=== PATIENT | female | born 1975 | race Caucasian/White ===

== ENCOUNTER → 2019-06-25 10:05 | Outpatient (CLI) | payer OTHER, MEDICAID, SELFPAY ==
--- NOTE | 2019-06-25 10:13 | RAD_ITS ---
HISTORY: inflammatory polyarthropathy ADDITIONAL HISTORY: None provided. TECHNIQUE: AP and lateral views of the right hip with AP pelvis Number of images including paperwork: 3 COMPARISON: None FINDINGS: BONES: No acute fracture. No erosive changes. JOINTS: No subluxation. SOFT TISSUES: No distinct foreign body. RAD/HIP, UNI W/ Pelvis 2-3 Views IMPRESSION: No acute osseous abnormality. at 2255 Reported and signed by: Yashira Lacy MD Electronically Signed: Yashira Lacy MD at 22:54 EST Tel , Service support ,
[2019-06-25 12:37] LABS: Erythrocyte Sedimentation Rate 18 mm/hr (0-20)
[2019-06-25 12:38] LABS: Absolute Lymphocyte Count 2.68 X10^3/uL (0.83-4.51); Absolute Neutrophil Count 8.3 X10^3/uL (2.0-7.7); Basophil# 0.03 X10^3/uL; Basophil% 0.3 % (0-1); Eosinophil# 0.13 X10^3/uL; Eosinophils% 1.1 % (0-5); Hematocrit 42.4 % (37-47); Hemoglobin 14.3 g/dL (12.0-15.0); Lymphocyte # 2.68 X10^3/ul (4.0); Lymphocyte % 23.3 % (19-41); Mean Corp Hgb Conc 33.7 g/dL (32-36); Mean Corpuscular Hgb 32.5 pg (27.0-32.0); Mean Corpuscular Volume 96.4 fL (81-99); Mean Platelet Vol. 9.3 fl (6.2-12.0); Monocyte# 0.32 X10^3/uL; Monocyte% 2.8 % (0-10); NRBC Flagged by Analyzer 0 % (0-5); Neutrophil # 8.32 X10^3/uL (2.7-7.7); Neutrophil % 72.2 % (47-70); Platelet Count 333 K/mm3 (150-450); RBC Distribution Width CV 11.9 % (11.6-14.6); RBC Distribution Width SD 42.4 fl (35.1-43.9); White Blood Count 11.5 K/mm3 (4.4-11.0)
[2019-06-25 13:01] LABS: ALB/GLOB Ratio 0.9 RATIO (0.9-2.4); AST(SGOT) 14 U/L (15-37); Alanine Aminotransfer ALT/SGPT 23 U/L (13-56); Albumin, Serum 3.5 g/dL (3.2-5.0); Alkaline Phosphatase 87 U/L (45-117); Anion Gap 5 (5-15); BUN 7 mg/dL (7-18); BUN/Creat Ratio 9.2 RATIO (10-20); Chloride 110 mmol/L (98-107); Creatinine, Serum 0.76 mg/dL (0.55-1.02); EST Glomerular Filtration Rate 88 mL/min (>60); Est Glom Filt Rate - Afr Amer 106 mL/min (>60); Glucose 98 mg/dL (74-106); Potassium 3.9 mmol/L (3.5-5.1); Protein, Total 7.5 g/dL (6.4-8.2); Rheumatoid Factor < 10.0 IU/mL (<15); Sodium Level 139 mmol/L (136-145)
[2019-06-25 13:44] LABS: Hepatitis B Surface Antibody Non-Reactive; Hepatitis B Surface Antigen Non-Reactive (Nonreactive); Hepatitis C Antibody Non-Reactive (Nonreactive)
[2019-06-26 14:00] LABS: ANTINUCLEAR ANTIBODIES DIRECT Negative (Negative)
[2019-06-27 15:45] LABS: CCP IgG Antibodies 9 units (0-19); Hepatitis B Core AB IgM Negative (Negative)
== END ==
PROVIDERS: Referring Provider Internal Medicine Rheumatology; Visit Provider Internal Medicine Rheumatology
DX: M06.4 Inflammatory polyarthropathy (principal); M79.7 Fibromyalgia; I47.2 Ventricular tachycardia; I42.8 Other cardiomyopathies; E78.5 Hyperlipidemia, unspecified; K21.9 Gastro-esophageal reflux disease without esophagitis
CPT/HCPCS: 36415; 73502; 80053; 85025; 85652; 86038; 86140; 86200; 86431; 86705; 86706; 86803; 87340

== ENCOUNTER → 2019-10-23 08:34 | Outpatient (CLI) | payer OTHER, MEDICAID, SELFPAY ==
[2019-10-23 10:06] LABS: Absolute Lymphocyte Count 2.46 X10^3/uL (0.83-4.51); Absolute Neutrophil Count 10.3 X10^3/uL (2.0-7.7); Basophil# 0.06 X10^3/uL; Basophil% 0.4 % (0-1); Eosinophil# 0.34 X10^3/uL; Eosinophils% 2.5 % (0-5); Hematocrit 44.4 % (37-47); Hemoglobin 14.6 g/dL (12.0-15.0); Lymphocyte # 2.46 X10^3/ul (4.0); Mean Corp Hgb Conc 32.9 g/dL (32-36); Mean Corpuscular Hgb 32.6 pg (27.0-32.0); Mean Corpuscular Volume 99.1 fL (81-99); Mean Platelet Vol. 9.5 fl (6.2-12.0); Monocyte# 0.46 X10^3/uL; Monocyte% 3.4 % (0-10); NRBC Flagged by Analyzer 0 % (0-5); Neutrophil # 10.27 X10^3/uL (2.7-7.7); Neutrophil % 75.3 % (47-70); Platelet Count 309 K/mm3 (150-450); RBC Distribution Width CV 11.9 % (11.6-14.6); RBC Distribution Width SD 43.5 fl (35.1-43.9); Red Blood Count 4.48 M/mm3 (4.2-5.4); White Blood Count 13.7 K/mm3 (4.4-11.0)
[2019-10-23 10:39] LABS: ALB/GLOB Ratio 0.9 RATIO (0.9-2.4); AST(SGOT) 17 U/L (15-37); Alanine Aminotransfer ALT/SGPT 23 U/L (13-56); Albumin, Serum 3.5 g/dL (3.2-5.0); Alkaline Phosphatase 97 U/L (45-117); Anion Gap 7 (5-15); BUN 8 mg/dL (7-18); BUN/Creat Ratio 10.1 RATIO (10-20); Calcium,Total 8.7 mg/dL (8.5-10.1); Chloride 106 mmol/L (98-107); EST Glomerular Filtration Rate 83 mL/min (>60); Est Glom Filt Rate - Afr Amer 100 mL/min (>60); Globulin 3.9 g/dL (2.2-4.2); Glucose 104 mg/dL (74-106); Protein, Total 7.4 g/dL (6.4-8.2); Sodium Level 138 mmol/L (136-145)
[2019-10-26 03:07] LABS: QNTFERON TB Mitogen Value > 10.00 IU/mL (.); QNTFERON TB Nil Value 0.01 IU/mL (.); QNTFERON TB1+ Ag Value 0.02 IU/mL (.); QNTFERON TB2+ Ag Value 0.01 IU/mL (.)
[2019-10-28 05:11] LABS: QNTIFERON TB Positive Criteria Negative (Negative)
== END ==
PROVIDERS: Referring Provider Internal Medicine Rheumatology; Visit Provider Internal Medicine Rheumatology
DX: M06.4 Inflammatory polyarthropathy (principal); M79.7 Fibromyalgia; K21.9 Gastro-esophageal reflux disease without esophagitis; I47.2 Ventricular tachycardia; I42.8 Other cardiomyopathies; E78.5 Hyperlipidemia, unspecified
CPT/HCPCS: 36415; 80053; 85025; 86480

== ENCOUNTER → 2019-11-06 08:13 | Outpatient (CLI) | payer OTHER, MEDICAID, SELFPAY ==
--- NOTE | 2019-11-06 08:18 | RAD_ITS ---
STUDY: X-RAY CHEST REASON FOR EXAM: Female, 44 years old. hx RA, about to change meds TECHNIQUE: Frontal and lateral views of the chest. COMPARISON: None. FINDINGS: The lungs are clear and expanded. There is no demonstrated pleural abnormality. Normal size heart. Normal mediastinum and bishnu. Normal visualized pulmonary arteries. Normal visualized aortic arch and descending thoracic aorta. Normal visualized thoracic spine. Normal visualized ribs, clavicles, and shoulders. There is no demonstrated abnormality of the visualized soft tissue structures of the upper abdomen. RAD/Chest PA and Lateral IMPRESSION: Normal x-ray examination of the chest. Electronically Signed: Nabil Mabry MD at 16:47 EDT Tel , Service support ,
== END ==
PROVIDERS: Referring Provider Internal Medicine Rheumatology; Visit Provider Internal Medicine Rheumatology
DX: M06.09 Rheumatoid arthritis without rheumatoid factor, multiple sites (principal); M79.7 Fibromyalgia; I47.2 Ventricular tachycardia; I42.8 Other cardiomyopathies; E78.5 Hyperlipidemia, unspecified; K21.9 Gastro-esophageal reflux disease without esophagitis; Z79.899 Other long term (current) drug therapy
CPT/HCPCS: 71046

== ENCOUNTER → 2020-02-26 16:31 | Outpatient (CLI) | payer OTHER, SELFPAY ==
[2020-02-26 18:41] LABS: Absolute Lymphocyte Count 4.35 X10^3/uL (0.83-4.51); Absolute Neutrophil Count 5.5 X10^3/uL (2.0-7.7); Basophil# 0.05 X10^3/uL; Basophil% 0.5 % (0-1); Eosinophil# 0.24 X10^3/uL; Eosinophils% 2.2 % (0-5); Hemoglobin 14.2 g/dL (12.0-15.0); Lymphocyte # 4.35 X10^3/ul (4.0); Lymphocyte % 40.1 % (19-41); Mean Corpuscular Hgb 32.5 pg (27.0-32.0); Mean Corpuscular Volume 98.4 fL (81-99); Mean Platelet Vol. 9.6 fl (6.2-12.0); Monocyte# 0.64 X10^3/uL; Monocyte% 5.9 % (0-10); NRBC Flagged by Analyzer 0 % (0-5); Neutrophil # 5.53 X10^3/uL (2.7-7.7); Platelet Count 339 K/mm3 (150-450); RBC Distribution Width CV 11.9 % (11.6-14.6); RBC Distribution Width SD 43.4 fl (35.1-43.9); Red Blood Count 4.37 M/mm3 (4.2-5.4); White Blood Count 10.8 K/mm3 (4.4-11.0)
[2020-02-26 18:49] LABS: ALB/GLOB Ratio 0.9 RATIO (0.9-2.4); AST(SGOT) 16 U/L (15-37); Alanine Aminotransfer ALT/SGPT 28 U/L (13-56); Albumin, Serum 3.5 g/dL (3.2-5.0); Alkaline Phosphatase 92 U/L (45-117); Anion Gap 6 (5-15); BUN 9 mg/dL (7-18); BUN/Creat Ratio 10.4 RATIO (10-20); Chloride 107 mmol/L (98-107); Creatinine, Serum 0.87 mg/dL (0.55-1.02); EST Glomerular Filtration Rate 75 mL/min (>60); Est Glom Filt Rate - Afr Amer 90 mL/min (>60); Globulin 3.7 g/dL (2.2-4.2); Glucose 104 mg/dL (74-106); Protein, Total 7.2 g/dL (6.4-8.2); Sodium Level 140 mmol/L (136-145)
== END ==
PROVIDERS: Referring Provider Internal Medicine Rheumatology; Visit Provider Internal Medicine Rheumatology
DX: M06.09 Rheumatoid arthritis without rheumatoid factor, multiple sites (principal); M79.7 Fibromyalgia; I47.2 Ventricular tachycardia; I42.8 Other cardiomyopathies; E78.5 Hyperlipidemia, unspecified; K21.9 Gastro-esophageal reflux disease without esophagitis; Z79.899 Other long term (current) drug therapy
CPT/HCPCS: 36415; 80053; 85025

== ENCOUNTER → 2020-06-05 14:26 | Outpatient (CLI) | payer OTHER, SELFPAY ==
[2020-06-05 17:38] LABS: Absolute Lymphocyte Count 3.96 X10^3/uL (0.83-4.51); Absolute Neutrophil Count 6.6 X10^3/uL (2.0-7.7); Basophil# 0.01 X10^3/uL; Basophil% 0.1 % (0-1); Eosinophil# 0.23 X10^3/uL; Hematocrit 44.8 % (37-47); Hemoglobin 14.7 g/dL (12.0-15.0); Lymphocyte # 3.96 X10^3/ul (4.0); Lymphocyte % 34.6 % (19-41); Mean Corp Hgb Conc 32.8 g/dL (32-36); Mean Corpuscular Hgb 32.9 pg (27.0-32.0); Mean Corpuscular Volume 100.2 fL (81-99); Mean Platelet Vol. 9.5 fl (6.2-12.0); Monocyte# 0.62 X10^3/uL; Monocyte% 5.4 % (0-10); NRBC Flagged by Analyzer 0 % (0-5); Neutrophil # 6.59 X10^3/uL (2.7-7.7); Neutrophil % 57.6 % (47-70); Platelet Count 353 K/mm3 (150-450); RBC Distribution Width CV 12.2 % (11.6-14.6); RBC Distribution Width SD 45.7 fl (35.1-43.9); Red Blood Count 4.47 M/mm3 (4.2-5.4); White Blood Count 11.5 K/mm3 (4.4-11.0)
[2020-06-05 17:51] LABS: ALB/GLOB Ratio 0.9 RATIO (0.9-2.4); AST(SGOT) 18 U/L (15-37); Alanine Aminotransfer ALT/SGPT 26 U/L (13-56); Albumin, Serum 3.6 g/dL (3.2-5.0); Alkaline Phosphatase 91 U/L (45-117); Anion Gap 6 (5-15); BUN 7 mg/dL (7-18); BUN/Creat Ratio 9.2 RATIO (10-20); Calcium,Total 8.8 mg/dL (8.5-10.1); Chloride 107 mmol/L (98-107); Creatinine, Serum 0.76 mg/dL (0.55-1.02); EST Glomerular Filtration Rate 86 mL/min (>60); Est Glom Filt Rate - Afr Amer 104 mL/min (>60); Globulin 3.8 g/dL (2.2-4.2); Glucose 97 mg/dL (74-106); Potassium 3.6 mmol/L (3.5-5.1); Protein, Total 7.4 g/dL (6.4-8.2); Sodium Level 139 mmol/L (136-145)
== END ==
PROVIDERS: Referring Provider Internal Medicine Rheumatology; Visit Provider Internal Medicine Rheumatology
DX: M06.09 Rheumatoid arthritis without rheumatoid factor, multiple sites (principal); M79.7 Fibromyalgia; K21.9 Gastro-esophageal reflux disease without esophagitis; I47.2 Ventricular tachycardia; I42.8 Other cardiomyopathies; E78.5 Hyperlipidemia, unspecified; Z79.899 Other long term (current) drug therapy
CPT/HCPCS: 36415; 80053; 85025

== ENCOUNTER → 2020-07-09 10:06 | Outpatient (CLI) | payer OTHER, SELFPAY ==
[2020-07-09 10:10] LABS: Bacteria 0 SEEN /hpf (None Seen); Mucous, Urine 0 SEEN /hpf (<or=2+); White Blood Cells 0 SEEN /hpf (0-5)
[2020-07-09 12:07] LABS: Color, Urine Yellow (Yellow); Glucose, Dipstick Normal (Normal); Ketone-Dipstick Negative (Negative); Leukocyte Esterase-Dipstick Negative /ul (Negative); Nitrite-Dipstick Negative (Negative); Occult Blood-Urine 50 /ul (Negative); Protein-Dipstick Negative (Negative); Urine Bilirubin Dipstick Negative (Negative); Urine Clarity Sl. Cloudy (Clear); Urine Urobilinogen Normal (Normal)
[2020-07-09 12:09] LABS: Absolute Lymphocyte Count 2.37 X10^3/uL (0.83-4.51); Absolute Neutrophil Count 7.3 X10^3/uL (2.0-7.7); Basophil# 0.01 X10^3/uL; Basophil% 0.1 % (0-1); Eosinophil# 0.02 X10^3/uL; Eosinophils% 0.2 % (0-5); Hematocrit 42.7 % (37-47); Hemoglobin 14.1 g/dL (12.0-15.0); Lymphocyte # 2.37 X10^3/ul (4.0); Mean Corpuscular Hgb 32.9 pg (27.0-32.0); Mean Corpuscular Volume 99.5 fL (81-99); Mean Platelet Vol. 9.7 fl (6.2-12.0); Monocyte% 5.8 % (0-10); NRBC Flagged by Analyzer 0 % (0-5); Neutrophil % 70.7 % (47-70); Platelet Count 294 K/mm3 (150-450); RBC Distribution Width CV 12.2 % (11.6-14.6); RBC Distribution Width SD 44.7 fl (35.1-43.9); Red Blood Count 4.29 M/mm3 (4.2-5.4); White Blood Count 10.3 K/mm3 (4.4-11.0)
[2020-07-09 12:15] LABS: Red Blood Cells-Urine 0-5 SEEN /hpf (0-5); Squamous Epithelial Cells - UA 0-5 SEEN /hpf (5-10)
[2020-07-09 12:33] LABS: ALB/GLOB Ratio 0.9 RATIO (0.9-2.4); AST(SGOT) 18 U/L (15-37); Alanine Aminotransfer ALT/SGPT 25 U/L (13-56); Albumin, Serum 3.4 g/dL (3.2-5.0); Alkaline Phosphatase 91 U/L (45-117); Anion Gap 5 (5-15); BUN 6 mg/dL (7-18); BUN/Creat Ratio 8.3 RATIO (10-20); Calcium,Total 8.7 mg/dL (8.5-10.1); Chloride 108 mmol/L (98-107); Creatinine, Serum 0.73 mg/dL (0.55-1.02); EST Glomerular Filtration Rate 91 mL/min (>60); Est Glom Filt Rate - Afr Amer 111 mL/min (>60); Globulin 3.7 g/dL (2.2-4.2); Glucose 99 mg/dL (74-106); Protein, Total 7.1 g/dL (6.4-8.2); Sodium Level 139 mmol/L (136-145); T4 Free Direct 0.98 ng/dL (0.76-1.46); Thyroid Stim Hormone (TSH) 1.84 uIU/mL (0.358-3.74)
== END ==
PROVIDERS: PCP Family Medicine; Referring Provider Family Medicine; Visit Provider Family Medicine
DX: M06.9 Rheumatoid arthritis, unspecified (principal); E04.1 Nontoxic single thyroid nodule; F32.9 Major depressive disorder, single episode, unspecified; Z72.0 Tobacco use
CPT/HCPCS: 36415; 80053; 81001; 84439; 84443; 85025

== ENCOUNTER → 2020-07-15 14:03 | Outpatient (CLI) | payer OTHER, SELFPAY ==
--- NOTE | 2020-07-15 14:05 | US_ITS ---
STUDY: THYROID ULTRASOUND REASON FOR EXAM: Female, 44 years old. NODULE TECHNIQUE: Ultrasound evaluation of the thyroid was performed with real-time and static soler-scale imaging. COMPARISON: None. FINDINGS: RIGHT LOBE: The right lobe of the thyroid gland measures 5.1 x 1.6 x 1.2 cm. There is a homogeneous echotexture. There are no demonstrated solid, cystic or complex lesions. LEFT LOBE: The left lobe of the thyroid gland measures 4.5 x 1.7 x 1.5 cm. There is a homogeneous echotexture. There are no demonstrated solid, cystic or complex lesions. ISTHMUS: The isthmus measures 2 mm . The regional lymph nodes are normal. US/Thyroid IMPRESSION: Normal ultrasound examination of the thyroid. No nodule is seen. Electronically Signed: Сергей Soriano MD at 20:20 EST , Service support ,
== END ==
LOC: US 14:04
PROVIDERS: PCP Family Medicine; Referring Provider Family Medicine; Visit Provider Family Medicine
DX: E04.1 Nontoxic single thyroid nodule (principal)
CPT/HCPCS: 76536

== ENCOUNTER → 2020-07-31 10:33 | Outpatient (CLI) | payer OTHER, SELFPAY ==
--- NOTE | 2020-07-31 10:37 | RAD_ITS ---
STUDY: X-RAY CHEST REASON FOR EXAM: Female, 44 years old. FINGER CLUBBING TECHNIQUE: PA and lateral views of the chest. COMPARISON: Comparison is made with prior examination dated 11/06/2019. FINDINGS: The lungs are clear and expanded. There is no demonstrated pleural abnormality. Normal size heart. Normal mediastinum and bishnu. Normal visualized pulmonary arteries. Normal visualized aortic arch and descending thoracic aorta. Normal visualized thoracic spine. Normal visualized ribs, clavicles, and shoulders. There is no demonstrated abnormality of the visualized soft tissue structures of the upper abdomen. RAD/Chest PA and Lateral IMPRESSION: Normal x-ray examination of the chest. Electronically Signed: Jaziel Gibbs MD at 15:20 EDT , Service support ,
== END ==
LOC: MTRAD 10:34
PROVIDERS: PCP Family Medicine; Referring Provider Family Medicine; Visit Provider Family Medicine
DX: R68.3 Clubbing of fingers (principal)
CPT/HCPCS: 71046

== ENCOUNTER 2022-07-27 13:30 | Outpatient (RCR) | payer MEDICAID, SELFPAY ==
--- NOTE | 2022-06-27 15:17 | HP.PTEVAL ---
Patient's Visit Information CHANDLER MESSINA is a 46 year old F referred to Physical Therapy by BRITTANY Sneed with a diagnosis of R greater trochanteric bursitis. Date of Evaluation: 06/27/22 Physical Therapist: Meng Chirinos DPT - Visit Plan Frequency: 2x /Week Duration: 4-6 Weeks Plan: Start with glute medius, hip flexor, core strength in aquatic setting. Add in IT band and HS stretching. Add in hip ER/IR strengthening when not painful. - Subjective Pt. is here today for her initial evaluation with diagnosis of R hip pain, R hip bursitis. Pt. reports having increased pain for a few years. Pt. reports that she has been just dealing with it. She does report having an underlying arthritis which she was taking Enbril for, but reports she did not have RA. She reports only having osteoarthritis. I talked to her that this is typically used in rheumatisms, but she reports not having any that she knew of. Pt. also has B carpal tunnel, getting surgery at the end of july. Pt. reports pain at lateral R hip, near greater trochanter. Pt. denies radicular symptoms. She does have an AFO which she does not wear as she reports not being able to drive with it. Increases R hip pain: standing, walking, prolonged sitting, and lying on her R side. Reduces symptoms: massage gun helps. Pt. is hopeful to reduce symptoms in order to get back to all recreational and work activities without limitations. - Pain R lateral hip Pain Intensity (Out of 10): 5 - Objective POSTURE: Pt. has slight flexed posture, normal foot positioning, slight reduction in lumbar lordosis. Normal iliac crest heights, slight increase in wt. shift to L side. PALPATION: Pt. has tenderness at greater trochanter and along piriformis muscle belly. No hip flexor pain noted. NEURO: Pt. has normal sensation in BLEs. Reduction in R Achilles DTR, difficulty rising on B toes. ROM: R hip: ER 50deg (tight), IR 20deg NE, ext 10deg, flexion 120deg mild increase NW, abd 45deg NE, adduction 5 deg increase NW at greater trochanter. LUMBAR SPINE: flexion mod loss NE, ext mod loss NE, SB L mod/min loss increase NW, SB R min loss NE, rotation min loss bilat mild increase NW. MMT: LLE 5/5 throughout; except hip; flexion, abd and ext 4+/5. RLE: ankle PF 4/5, DF 4-/5; knee: ext 4+/5, flexion 4/5; hip flexion: 3/5, abd 3+/5, ext 4/5, ER 3/5, IR 3/5. Core strength- poor. GAIT: Pt. ambulates with increased R hip lateral translation during R stance phase. Pt. also heavily uses R hip flexors with swing phase, almost marching like. Decreased R DF noted as well during swing phase. - Special Tests R Hip Scour: Negative R Hip LILIAN - Intraarticular Pathology: Negative R Hip FADDIR - Labrum: Negative R Hip Trendelenberg - Glut Medius: Positive R Hip Kenneth - IT Band: Positive - Balance/Special Test Scores Lower Extremity Functional Score: 0 - Goals Goal 1:: LTG: Pt. to be I with HEP. Goal Time Frame: 4-6 Weeks Goal 2:: STG: pt. to have increased IT band and HS length symmetrical to L side. Goal Time Frame: 2-4 Weeks Goal 3:: LTG: Pt. to have increased LLE strength symmetrical to R side. Goal Time Frame: 4-6 Weeks Goal 4:: LTG: Pt. to be able to stand, walk, climb stairs without increase in R hip pain. Goal Time Frame: 4-6 Weeks Goal 5:: STG: Pt. to sleep without increase in symptoms. Goal Time Frame: 2-4 Weeks - Rehabilitation Potential Physical Therapy Diagnosis: Pt. has signs and symptoms consistent with R greater trochanteric bursitis. Pt. has an underlying R LE issues from a defect, she is unsure of the nature, but reports having a weak RLE due to this. She has marked weakness throughout her RLE, especially with glute medius, R hip flexor, R ankle DF, R PF. Due to this weakness it appears that she is over using her IT band to stabilize resulting in greater trochanteric bursitis. Pt. would benefit from PT to address the above limitations progressing back to all recreational and work activities with good toelrance. Rehabilitation Potential: Fair - Anticipated Interventions Patient/Client Instruction: Educate patient on: Condition, Plan of Care, Risk Factors, Benefits of Fitness Program For the Purpose of:: To facilitate caregiver knowledge, To improve self management, To prevent re-injury, To improve ability to perform tasks related to life management, To improve tolerance to ADL's Therapeutic Exercise to Include: Strength training, Power training, Endurance training, Body mechanics, Postural training, Flexibilty training, Gait and locomotor training, In an aquatic setting For the Purpose of:: To decrease pain, To increase ROM, To improve nutrient delivery to tissue, To increase oxygenation perfusion, To improve muscle performance and motor function, To improve ability to perform ADL's, To increase tolerance to activity/condition/position, To improve performance and independence with ADL's, To decrease level of supervision to perform tasks, To improve ability of physical actions for home/community/work/leisure, To improve health of tissue Thank you for the opportunity to evaluate your patient. For Medicare and Medicare HMO plans, please review the plan of care and approve it. It will need to be FAXED BACK to us at [phone] for Medicare purposes. For Medicare only, by signing this I certify the plan of care. Please let me know if there are questions or concerns regarding this plan of care. Physician Signature: Date:
--- NOTE | 2022-07-27 19:04 | HP.PTDCSUM ---
It has been my pleasure to treat CHANDLER MESSINA referred by BRITTANY Sneed, with the diagnosis of R greater trochanteric bursitis for a total of 8 visit(s). Discharge Date: 07/27/22 Please see the following information for a summary of their discharge status. Subjective: Pt. reports overall no change in her R hip pain. Pt. denies N/T. Pt. reports still having pain with sitting, standing, and with all movements. She reports she is going in to have her carpal tunnel surgery next week. R lateral hip Pain Intensity (Out of 10): 7 % Improvement: 0 Objective/Function: Pt. continues to walk with an antalgic pattern during R stance phase. Pt. does have a slight leg length discrepancy. Pt. reports having relief with a lift previously, but reports not being able to wear insert, and would need a built up shoe. MMT: RLE: ankle and knee 4/5 marked weakness noted (pt. reports she had been weak here since youth), hip: flexion 4/5 increase NW, abd 4/5 increase NW. LLE: 5/5 throughout. ROM: R hip: flexion 90deg, abd 10deg, IR 20deg, ER 40deg, adduction to neutral. I did not feel any tightness or end feel, but was empty due to pain. She did have some pain with a slump test in her R hip, but no radicular symptoms. She also C/O increased anterior rib pain during testing. Not sure the nature of this. + obers for tightness and pain. She did not test much stronger in comparison to her initial evaluation. She also did not tolerate stretching much. At this point I would recommend following up with physician to determine best course of action. Goal 1:: LTG: Pt. to be I with HEP. Goal Progress: Progressing Goal 2:: STG: pt. to have increased IT band and HS length symmetrical to L side. Goal Progress: Not Progressing Goal 3:: LTG: Pt. to have increased LLE strength symmetrical to R side. Goal Progress: Not Progressing Goal 4:: LTG: Pt. to be able to stand, walk, climb stairs without increase in R hip pain. Goal Progress: Not Progressing Goal 5:: STG: Pt. to sleep without increase in symptoms. Goal Progress: Not Progressing Plan: Pt. to be DC from PT at this point in time. Discharge Comments: Pt. was seen in aquatic setting to work on glute strengthening, TFL stretching and progressive strengthening. She did okay while in pool, but this did not correlate with reduction in symptoms otherwise. She continues to be very hesitant to more her R hip except into flexion. She has some weakness in her R leg, but reports this is due to a injury. This may be causing over stress to her IT band, but her testing was pretty inconsistent. Pt. to be DC to physician for further testing. If there are questions or concerns regarding this patient's physical therapy, please feel free to call me at [phone]. Thank you for the referral of this patient. Sincerely, Meng Chirinos, DPT Balance/Gait/Functional tests - Balance/Special Test Scores Lower Extremity Functional Score: 0
== END 2022-07-27 19:00 | disposition home or self-care (01) ==
LOC: PT 13:30
PROVIDERS: PCP Family Medicine
DX: M70.60 Trochanteric bursitis, unspecified hip (principal)
CPT/HCPCS: 97110; 97113; 97161; 97164

== ENCOUNTER 2022-08-02 12:43 | Day surgery (SDC) | payer MEDICAID, SELFPAY ==
[2022-08-02 13:22] VITALS: BP 129/69; PULSE 77; RESP 16; TEMP 36.3; O2SAT 96; BMI 35.7
[2022-08-02] MEDS: Lactated Ringers 1,000 ML 15 ML IV (13:26)
[2022-08-02 13:29] LABS: Internal QC Validated? YES +Cl - CLEAR BKGD; Pregnancy, Urine Negative Negative
--- NOTE | 2022-08-02 13:52 | HP.PCM_ITS ---
History and Physical Date of Admission: 08/02/22 [facility] [address] [place] [address] OFFICE VISIT Date of Service:? 06/20/22 MR#: [id number] Acct: [id number] Name:CHANDLER OGLESBY Rep #: [id number] : 1975 ? ? Provider: Dr. Edwardo Barrow, Age/Sex:? 46/F ? ? Location: [facility] [place].[facility] Status: Signed Intake Intake Visit Reasons:?BL hands Allergies nitroglycerin Allergy (Verified 06/09/22 13:07) Hives Medications bupropion HCl 150 mg 24 hr tablet, extended release ea PO 06/09/22 [History Confirmed 06/20/22] meloxicam 15 mg tablet 15 mg PO DAILY Pain #30 tabs 06/09/22 [Rx Confirmed 06/20/22] sertraline 100 mg tablet 100 mg PO 06/09/22 [History Confirmed 06/20/22] PFSH Surgical History?(Updated 06/20/22 @ 13:26 by Ekaterina Rosales) H/O foot surgery Hx of prior ablation treatment Family History?(Updated 06/09/22 @ 13:17 by Debbie Trejo) Other CVA (cerebral vascular accident) Cancer Social History?(Updated 06/20/22 @ 13:43 by Ekaterina Rosales) household members:? none Smoking Status:? Current every day smoker tobacco type: cigarettes alcohol intake:? current alcohol intake frequency: 3 or more drinks per day Alcohol type: beer HPI BL hands Details: Parts of this documentation were recorded by a scribe, this documentation accurately reflects the service provided and the decisions made by me, Dr. Edwardo Barrow, DO 06/20/22 5037. CHANDLER MESSINA is a 46 year old F here today for? F/U on BL EMGs. SHe states that she has pain/numbness and tingling of the BL hands into the 1st through 4th digits. She states that the left hand is worse than the right. She is right handed. She has been having symptoms for about 1-2 years. She has tried night splinting for about 1 year or longer on the BL wrists which hasn't been helpful. Denies any previous injections/surgery/or trama to the hands. She was seeing Dr. Sanders for inflammatory arthritis but doesnt recall the name of the diagnosis. She has been off Enbrel? for about 1 year since she hasn't been able to afford this. Ortho Exam General General: Yes no acute distress Neurologic: Yes alert and Yes oriented x3 Psychologic: Yes reasonable and appropriate Right Wrist/Hand Right Wrist: Yes Durken's Test, Tinel's and Phalen's; No Thenar Atrophy or Hypothenar Atrophy WRIST: She has clubbing of all of her digits small non mobile ganglion at volar wrist flexion crease Left Wrist/Hand Skin/Wound: No erythema Left Wrist: Yes Durken's Test, Yes Tinel's and Yes Phalen's; No Thenar Atrophy and No Hypothenar Atrophy WRIST: clubbing of the finger nails pain in DIP joint of middle finger no triggering. Head: Normocephalic Atraumatic Chest: symmetrical rise, non-labored breathing, no audible wheeze Abdomen: no guarding, non-rigid Supplemental Info 06/13/2022 EMG bilateral upper extremities: #1Right median mononeuropathy consistent with moderate carpal tunnel #2 left median mononeuropathy consistent with mild to moderate carpal tunnel? 06/20/22 1:21 pm ALAN - Edwardo Barrow Coding Level of Care Code Off vis,est,level 3 Diagnoses Bilateral carpal tunnel syndrome? G56.03 Inflammatory arthritis? M19.90 Assessment and Plan Assessment and Plan (1) Bilateral carpal tunnel syndrome: ?Status:?Acute (2) Inflammatory arthritis: ?Status:?Acute Plan Personally reviewed patients EMG of the BL upper extremities. Educated that she does have BL carpal syndrome. Treatment options are do nothing or night bracing or injections or carpal tunnel release. Reviewed the pre-operative plans with the patient. Risks and benefits of the procedure were fully explained, including but not limited to incisional hypersensitivity, pillar pain ,infection, neurovascular injury, continued pain, arthritis, stiffness, need for further surgery, re-injury, DVT, PE, general risks of anesthesia, and loss of limb or life. The patient understands all the risks. She would have 0.5lb lifting restriction for 2 weeks post op then 5lb restriction until 4 weeks post op. She will proceed with left carpal tunnel release on 08/02/22. Patient does admit to drinking about 18 twisted teas a week although she denies recreational drug use and denies any alcohol withdrawal symptoms ever. Follow up 2 weeks post op or sooner if pain, swelling, numbness or associated symptoms, or concerns develop.? All questions answered. Patient in agreement of plan. 06/20/22 1401 <Electronically signed by Edwardo Barrow DO> Date I have examined the patient and the H&P has been reviewed. There are no clinical changes since date of exam. Edwardo Barrow DO Cosigner Signature: Date (if applicable)
[2022-08-02] MEDS: Cefazolin 2 GM in 0.9% Normal Saline 100 ML IV (14:20)
[2022-08-02] MEDS: Lidocaine 1% /Epi 1:100 (20ml) 20 ML Vial (14:33)
--- NOTE | 2022-08-02 14:50 | OP.PCM_ITS ---
Operative Report Date of Procedure: 08/02/22 Preoperative diagnosis; left carpal tunnel syndrome Postoperative diagnosis; same Procedure: Left open carpal tunnel release Anesthesia: Local with MAC Tourniquet time; 18 minutes 250 mm Hg Complications: None Indication for procedure; This is a 46-year-old female with long-standing sym ptoms consistent with carpal tunnel syndrome the patient did have electrodiagnostic evidence of this and has failed conservative treatment. Risks benefits and alternatives were reviewed including risks of bleeding infection nerve artery tissue damage need for further surgery and continued pain and symptoms, hypersensitivity to scar and Pillar pain. Procedure; The patient was met in the preoperative holding area the operative extremity was identified by both patient and physician and was marked the patient was met by anesthesia and brought back to the operating room and transferred to the operating table in the supine position. Anesthesia was started. A well-padded tourniquet was placed on the operative upper extremity. The patient was prepped and draped in the usual sterile fashion. A timeout was called to ensure the proper patient procedure and extremity were being contemplated. 0.5 percent lidocaine with epinephrine was injected into the incisional area. An Esmarch was used to exsanguinate the extremity. The tourniquet was inflated to 250 mmHg. A midline incision was made with a 15 blade scalpel between the thenar and hypothenar eminence. This was carried down through the skin and subcutaneous tissue. Jeremiah retractors were then used, a deep blade scalpel was used to make a deep incision in the palmar aponeurosis. The jeremiah retractors were then placed deep to this and the transverse carpal ligament was identified a perforation was made with a scalpel and a Littler scissors were used to complete the release of the transverse carpal ligament distally under direct visualization with the tips facing ulnarly until the perivascular fat was reached. Then turning our attention proximally using a tension slide technique the proximal extent of the transverse carpal ligament was released . There was noted to be flattening of median nerve and hypertrophy of the transverse carpal ligament without other findings]. The wound was thoroughly irrigated and was closed with 4-0 nylon vertical mattress stitches. Dressing was applied in the form of xeroform 4 x 4, web roll and an alexx wrap. Tourniquet was let down there is no intraoperative complications patient shayla rated the procedure well and was transferred to the PACU. All counts were correct.
--- NOTE | 2022-08-02 14:53 | DCINST_ITS ---
Discharge Instructions Diet Discharge Diet: No restrictions Dressing / Incision Call your doctor if you observe: Shortness of breath and Chest pain Additional Dressing/Incision Instructions:: Ice and elevate operative extremity next 72 hours. Keep dressing on clean and dry for 48 hours then may remove and allow warm soapy water to rinse over incision but do not submerge until sutures are out. Then apply bandaid over incision and change daily. encourage finger range of motion. Not lift more than 1/2 pound. Minimize narcotic use only as needed and directed, may use OTC NSAID and Tylenol to supplement/substitute for pain control. Follow Up Care Please Follow Up With: Edwardo Barrow DO When: 2 weeks Test Results: Test results from this visit will be discussed in further detail at your follow- up appointment, if applicable. Discharge Plan Admission Primary Reason for Your Visit: Left carpal tunnel release Attending Provider: Edwardo Barrow Primary Care Provider: Kt Rodriguez Discharge Orders/Prescriptions Prescriptions: New oxycodone 5 mg tablet 5 - 10 mg PO Q4H PRN (Reason: pain) 4 Days Qty: 10 0RF Continued bupropion HCl 150 mg tablet extended release 24 hr 300 mg PO DAILY Label Comments: TAKE 1 TABLET BY MOUTH EVERY DAY sertraline 100 mg tablet 150 mg PO DAILY Label Comments: TAKE 1 AND 1/2 TABLETS BY MOUTH DAILY calcium carbonate [Tums] 300 mg (750 mg) Tablet,Chewable 300 mg PO BID Referrals / Follow Up: Kt Rodriguez MD [Primary Care Provider] - Disposition Disposition (needs filled in before D/C Order can be placed): Home, Self Care
[2022-08-02 15:00] VITALS: BP 102/69; BP 129/69; PULSE 82; RESP 16; TEMP 37.2; O2SAT 92
[2022-08-02 15:05] VITALS: BP 129/69; BP 98/63; PULSE 79; RESP 16; O2SAT 94
[2022-08-02 15:10] VITALS: BP 129/69; BP 88/57; PULSE 79; RESP 16; O2SAT 93
[2022-08-02 15:19] VITALS: BP 103/74; BP 129/69; PULSE 77; RESP 16; TEMP 36.4; O2SAT 93
[2022-08-02 16:14] VITALS: BP 129/69
== END 2022-08-02 16:24 | disposition home or self-care (01) ==
LOC: SDC 12:45 → AC 12:47
PROVIDERS: Anesthesiology; PCP Family Medicine; Referring Provider Orthopaedic Surgery; Visit Provider Orthopaedic Surgery
PROC: (CPT 64721; principal; 2022-08-02 14:10)
DX: G56.03 Carpal tunnel syndrome, bilateral upper limbs (principal); M06.4 Inflammatory polyarthropathy; F17.210 Nicotine dependence, cigarettes, uncomplicated; Z79.1 Long term (current) use of non-steroidal anti-inflammatories (NSAID); Z79.899 Other long term (current) drug therapy
CPT/HCPCS: 64721; 01810; 81025; J7120

== ENCOUNTER → 2022-09-09 | Outpatient (CLI) | payer MEDICAID, SELFPAY ==
[2022-09-09 17:57] LABS: Rheumatoid Factor < 10.0 IU/mL (<15)
[2022-09-09 17:59] LABS: Erythrocyte Sedimentation Rate 32 mm/hr (0-30)
[2022-09-12 11:08] LABS: CCP IgG Antibodies 0 units (0-19)
== END | disposition home or self-care (01) ==
LOC: MFPLAB 14:47
PROVIDERS: PCP Family Medicine; Visit Provider Family Medicine
DX: M06.9 Rheumatoid arthritis, unspecified (principal)
CPT/HCPCS: 36415; 85652; 86140; 86200; 86431

== ENCOUNTER 2022-11-15 06:49 | Day surgery (SDC) | payer MEDICAID, SELFPAY ==
--- NOTE | 2022-11-15 07:05 | HP.PCM_ITS ---
History and Physical Date of Admission: 11/15/22 Provider Notes CHANDLER MESSINA?(VIP)??47??F??1975 ? Allergy/Adv: Environmental Allergies: Uncoded, nitroglycerin (More??) Close Orthopedics Visit (Signed) Edwardo Barrow - 11/09/22 11:10 Orthopedics Visit (Signed) Ana Carrion - 08/15/22 14:55 BMS Internal Correspondence (Scanned) 08/11/22 10:35 Progress Note: Post-Anes Eval (Scanned) 08/03/22 13:39 Anesthesia Evaluation Form (Scanned) 08/03/22 13:39 Other Facility Information (Scanned) 08/03/22 13:39 Volcanology Teacher Strip (Scanned) 08/03/22 13:39 Surgery Discharge Packet (Viewable) 08/02/22 15:51 Anesthesia Intraop (Scanned) 08/02/22 15:03 Discharge Instructions (Signed) Edwardo Barrow - 08/02/22 14:55 Operative Report (Signed) Edwardo Barrow - 08/02/22 14:53 History & Physical (Signed) Edwardo Barrow - 08/02/22 13:52 Physical Therapy Discharge Summary (Signed) Meng Chirinos - 07/27/22 19:04 External Correspondence (Scanned) 07/15/22 15:36 External Correspondence (Scanned) 06/28/22 11:29 Physical Therapy Evaluation (Signed) Meng Chirinos - 06/27/22 15:17 Orthopedics Visit (Signed) Edwardo Barrow - 06/20/22 14:01 Orthopedics Visit (Signed) Ana Carrion - 06/10/22 16:45 BMS HIPAA (Scanned) 06/09/22 12:58 Add?Addendum [facility] [address] [place] [address] [address] [place] [address] OFFICE VISIT Date of Service: 11/09/22 MR#: [id number] Acct: [id number] Name: CHANDLER MESSINA Amara Rep #: [id number] : 1975 Provider: Dr. Edwardo Barrow DO Age/Sex: 47/F Location: [facility] [place] Status: Signed Intake Vital Signs 08/02/2312:22 Height 5 ft 1 in Intake Visit Reasons: RIGHT HAND Is patient in pain?: Yes (Right hand) Pain scale (1-10): 8 Allergies Environmental Allergies: Uncoded Allergy (Verified 11/09/22 10:38) Rashnitroglycerin Allergy (Verified 11/09/22 10:38) Hives Medications bupropion HCl 150 mg 24 hr tablet, extended release 300 mg PO DAILY 06/09/22 [History Confirmed 11/09/22] sertraline 100 mg tablet 150 mg PO DAILY 06/09/22 [History Confirmed 11/09/22] calcium carbonate 300 mg (750 mg) chewable tablet (Tums) 300 mg PO BID 08/01/22 [History Confirmed 11/09/22] PFSH Medical History Alcohol use Anemia Anxiety Arthritis Back pain Chronic cough Depression Easy bruising Gastric reflux History of atrial fibrillation History of diverticulitis History of echocardiogram History of pain when walking History of stress test Migraine headache Restless legs Shortness of breath on exertion Smoker Syncope Wears dentures Wears glasses Surgical History H/O foot surgery Hx of prior ablation treatment Hx of release of tendon Family History Other CVA (cerebral vascular accident) Cancer Social History household members: none Smoking Status: Current every day smoker tobacco type: cigarettes alcohol intake: current alcohol intake frequency: 3 or more drinks per day Alcohol type: beer HPI RIGHT HAND Details: Parts of this documentation were recorded by a scribe, this documentation accurately reflects the service provided and the decisions made by me, Dr. Edwardo Barrow, DO 11/09/22 0740. CHANDLER MESSINA is a 47 year old F here today to discuss scheduling carpal tunnel release surgery for her right hand. She reports pain, numbness and tingling, which has gotten worse over the last few months. Her left hand is healed from carpel tunnel release and now she wants to proceed with the right hand. Ortho Exam General General: Yes no acute distress Neurologic: Yes alert and Yes oriented x3 Psychologic: Yes reasonable and appropriate Right Wrist/Hand Skin/Wound: Yes CDI, No Swelling and No Ecchymosis Right Wrist: Yes Phalen's; No Tinel's Left Wrist/Hand Skin/Wound: No Swelling and No Ecchymosis Right Hip Skin: No Ecchymosis, No soft tissue swelling and No Erythema HIP: No groin pain with hip range of motion tender to palpation over the greater trochanteric bursa Head: Normocephalic Atraumatic Chest: symmetrical rise, non-labored breathing, no audible wheeze Abdomen: no guarding, non-rigid Supplemental Info 08/02/2022: Left open carpal tunnel release Dr. Barrow 06/13/2022 EMG bilateral upper extremities: #1Right median mononeuropathy consistent with moderate carpal tunnel #2 left median mononeuropathy consistent with mild to moderate carpal tunnel? Coding Level of Care Code Off vis,est,level 3 Diagnoses Bilateral carpal tunnel syndrome G56.03 Greater trochanteric bursitis of right hip M70.61 Assessment and Plan Assessment and Plan (1) Bilateral carpal tunnel syndrome: Status: Acute (2) Greater trochanteric bursitis of right hip: Plan Spoke with the patient about her options for her right carpal tunnel syndrome- surgery, injections. Patient wanted to proceed with surgery at this time. Patient will have restrictions for 3 weeks after her surgery. Spoke with the patient about her right greater troch bursa. She may have an injection, oral anti-inflammatories, physical therapy. She did not want to proceed with an injection. She is unable to take oral anti-inflammatories at this time as she is not able to take NSAIDs 7 days prior to her surgery. She should work on stretching her IT band. Patient has an appointment with a wireless field technician tomorrow. She should not start any medications at this time as she is scheduled for surgery on 11/15/22. Follow up for 2 week post op or sooner if pain, swelling, numbness or associated symptoms, or concerns develop. All questions answered. Patient in agreement of plan. 11/09/22 1110 <Electronically signed by Edwardo Barrow DO> Date Edwardo Clark Signature: Date (if applicable) I have examined the patient and the H&P has been reviewed. There are no clinical changes since date of exam.
[2022-11-15 07:14] VITALS: BP 117/77; PULSE 81; RESP 16; TEMP 36.1; O2SAT 97; BMI 35.8
[2022-11-15 07:14] LABS: Internal QC Validated? YES +Cl - CLEAR BKGD; Pregnancy, Urine Negative Negative
[2022-11-15] MEDS: Lactated Ringers 1,000 ML 15 ML IV (07:24)
[2022-11-15] MEDS: Cefazolin 2 GM in 0.9% Normal Saline 100 ML IV (08:19)
[2022-11-15] MEDS: Lidocaine 1% /Epi 1:100 (20ml) 20 ML Vial (08:36)
--- NOTE | 2022-11-15 08:54 | OP.PCM_ITS ---
Operative Report Date of Procedure: 11/15/22 Preoperative diagnosis; right carpal tunnel syndrome Postoperative diagnosis; same Procedure: Right open carpal tunnel release Anesthesia: Local with MAC Tourniquet time; 10 minutes 250 mm Hg Complications: None Indication for procedure; This is a 47-year-old female with long-standing s ymptoms consistent with carpal tunnel syndrome the patient did have electrodiagnostic evidence of this and has failed conservative treatment. Risks benefits and alternatives were reviewed including risks of bleeding infection nerve artery tissue damage need for further surgery and continued pain and symptoms, hypersensitivity to scar and Pillar pain. Procedure; The patient was met in the preoperative holding area the operative extremity was identified by both patient and physician and was marked the patient was met by anesthesia and brought back to the operating room and transferred to the operating table in the supine position. Anesthesia was started. A well-padded tourniquet was placed on the operative upper extremity. The patient was prepped and draped in the usual sterile fashion. A timeout was called to ensure the proper patient procedure and extremity were being contemplated. 0.5 percent lidocaine with epinephrine was injected into the incisional area. An Esmarch was used to exsanguinate the extremity. The tourniquet was inflated to 250 mmHg. A midline incision was made with a 15 blade scalpel between the thenar and hypothenar eminence. This was carried down through the skin and subcutaneous tissue. Jeremiah retractors were then used, a deep blade scalpel was used to make a deep incision in the palmar aponeurosis. The jeremiah retractors were then placed deep to this and the transverse carpal ligament was identified a perforation was made with a scalpel and a Littler scissors were used to complete the release of the transverse carpal ligament distally under direct visualization with the tips facing ulnarly until the perivascular fat was reached. Then turning our attention proximally using a tension slide technique the proximal extent of the transverse carpal ligament was released . There was noted to be hourglass configuration to the median nerve and hypertrophy of the transverse carpal ligament without other findings. The wound was thoroughly irrigated and was closed with 4-0 nylon vertical mattress stitches. Dressing was applied in the form of xeroform 4 x 4, web roll and an alexx wrap. Tourniquet was let down there is no intraoperative complications patient tolerated the procedure well and was transferred to the PACU. All counts were correct.
[2022-11-15 08:55] VITALS: BP 117/77; BP 88/55; PULSE 82; RESP 16; TEMP 36.8; O2SAT 94
--- NOTE | 2022-11-15 08:55 | DCINST_ITS ---
Discharge Instructions Dressing / Incision Call your doctor if you observe: Shortness of breath and Chest pain Follow Up Care Please Follow Up With: Edwardo Barrow DO When: 2 weeks Test Results: Test results from this visit will be discussed in further detail at your follow- up appointment, if applicable. Discharge Plan Admission Primary Reason for Your Visit: Right carpal tunnel release Attending Provider: Edwardo Barrow Primary Care Provider: Care Physician,Ramona Primary Discharge Orders/Prescriptions Prescriptions: New oxycodone 5 mg tablet 5 mg PO Q4H PRN (Reason: pain) 3 Days Qty: 14 0RF Referrals / Follow Up: Kt Rodriguez MD [Med Staff - Quarter Supervisor] - Disposition Disposition (needs filled in before D/C Order can be placed): Home, Self Care
[2022-11-15 09:00] VITALS: BP 117/77; BP 87/56; PULSE 80; RESP 16; O2SAT 96
[2022-11-15 09:05] VITALS: BP 117/77; BP 89/55; PULSE 77; RESP 16; O2SAT 92
[2022-11-15 09:09] VITALS: BP 117/77; BP 92/63; PULSE 75; RESP 16; TEMP 36.2; O2SAT 93
[2022-11-15 10:00] VITALS: BP 117/77
== END 2022-11-15 10:04 | disposition home or self-care (01) ==
LOC: SDC 06:49 → AC 06:51
PROVIDERS: Anesthesiology; Referring Provider Orthopaedic Surgery; Visit Provider Orthopaedic Surgery
PROC: (CPT 64721; principal; 2022-11-15 08:20)
DX: G56.03 Carpal tunnel syndrome, bilateral upper limbs (principal); F17.210 Nicotine dependence, cigarettes, uncomplicated
CPT/HCPCS: 64721; 81025; J7120; J2405

== ENCOUNTER 2024-04-09 10:20 | Emergency (ER) | payer MEDICAID, SELFPAY ==
[2024-04-09 10:20] VITALS: BP 130/92; PULSE 95; RESP 18; TEMP 36.6; O2SAT 100; BMI 34.7
--- NOTE | 2024-04-09 10:44 | CT_ITS ---
STUDY: CT ABDOMEN AND PELVIS WITH CONTRAST REASON FOR EXAM: Female, 48 years old. Low groin, rectal pain, history of diverticulitis. RADIATION DOSAGE (If Supplied By Facility): CTDIvol = ( 19.41 ) mGy, DLP = ( 1136.74 ) mGycm TECHNIQUE: Transaxial images were obtained from the dome of the diaphragm to the symphysis pubis without oral contrast. ml of 100mL Isovue-370 contrast was administered. Sagittal and coronal images were reconstructed. Individualized dose optimization techniques were used for this CT. Mild motion artifact is present. COMPARISON: None. FINDINGS: There are chronic interstitial fibrotic changes of the lung bases. Groundglass edema is present in the lung bases. Normal liver. Normal gallbladder and extrahepatic biliary system. Normal spleen. Normal pancreas. Normal bilateral adrenal glands. Normal right kidney. Normal left kidney. Normal visualized stomach. Abnormal fistulous connection and adhesion is of the middle one third ileum to the posterior left side of the uterus and abnormal adhesions/fistulous connection between the left posterior side of the uterus, middle one third ileum loop of bowel, and the mid sigmoid colon which shows the short segment of ileum connected to the sigmoid colon on image 91/123 series 2. Mesenteric edema and subcentimeter reactive lymphadenopathy is present around the sites of fistulous connections. Moderate to significant rectosigmoid diverticulosis is present without demonstrated acute diverticulitis. No abscess or free air is present. No demonstrated small bowel obstruction. No demonstrated small bowel dilatation. The appendix is visualized and appears normal. Mild to moderate edema is present in the rectosigmoid colon with the diffuse diverticula consistent with sequela of chronic colitis/inflammation. There is diffuse atherosclerotic calcification of the abdominal aorta, without a demonstrated aneurysm. Normal inferior vena cava. Normal retroperitoneum. Normal urinary bladder. Unremarkable uterus and adnexa. Normal abdominal wall. There are diffuse degenerative changes of the visualized lumbar spine. CT/Abdomen/Pelvis W IV Cont ONLY IMPRESSION: 1. 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 Oral and IV contrast can be administered to determine if the fistulous tracts are patent or scar. 2. Significant rectosigmoid diverticulosis and mild to moderate edema/thickening of the wall due to chronic inflammation Electronically Signed: Jefferson Dupree MD at 12:26 EST ,
--- NOTE | 2024-04-09 10:46 | ED.VIS.GI ---
HPI HPI - GI History of Present Illness Chief Complaint: Abd Pain Detail of Chief Complaint: Abdominal pain Informant: patient Narrative Narrative: Patient presents with abdominal pain that started 3 days ago. She had a bowel movement that was painful at that time. Patient now complains of lower abdomen pain. At 1 point she thought she was constipated so she took a laxative and has had multiple bowel movements since. No blood in the stool. She denies urinary symptoms. She states that she has history of diverticulosis. She has never had a colonoscopy. Pain worse with movement. PFSH PFSH Medical History Alcohol use Anemia Anxiety Arthritis Back pain Chronic cough Depression Easy bruising Gastric reflux History of atrial fibrillation History of diverticulitis History of echocardiogram History of pain when walking History of stress test Migraine headache Restless legs Shortness of breath on exertion Smoker Syncope Wears dentures Wears glasses Home Medications ?Medication ?Instructions ?Recorded ?Last Taken ?Type oxycodone 5 mg tablet 5 mg PO Q4H PRN pain 3 days #14 11/15/22 Unknown Rx tabs Allergy/AdvReac Type Severity Reaction Status Date / Time Environmental Allergies: Allergy Rash Verified 04/09/24 10:22 Uncoded nitroglycerin Allergy Hives Verified 04/09/24 10:22 Family History Other CVA (cerebral vascular accident) Cancer Surgical History H/O foot surgery History of carpal tunnel surgery of left wrist Hx of prior ablation treatment Hx of release of tendon Social History household members: none Smoking Status: Current every day smoker tobacco type: cigarettes alcohol intake: current alcohol intake frequency: 3 or more drinks per day Alcohol type: beer ROS ROS ED Review of Systems ROS Unobtainable: other Constitutional Constitutional ED: Reports lethargy; Denies chills, fever(s), sweats or weight loss Eyes Eyes: Denies blurry vision, change in vision or diplopia ENT ENT ED: Denies rhinorrhea or sore throat Cardiovascular Cardiovascular: Denies chest pain, orthopnea or racing heartbeat Respiratory/Chest Respiratory/Chest: Denies cough, dyspnea, dyspnea on exertion, orthopnea or sputum Gastrointestinal Gastrointestinal: Reports abdominal pain, nausea and other Details: Rectal pain with bowel movement ; Denies diarrhea or vomiting Genitourinary Genitourinary ED: Denies dysuria, hematuria or urinary frequency Musculoskeletal Musculoskeletal: Denies arthralgias, back pain, myalgias or neck pain Integumentary Denies abscess, Abrasions or rash Neurologic Neurologic: Denies headache(s) or weakness Psychiatric Psychiatric: Denies anxiety, depression or suicidal thoughts Endocrine Endocrinology: Denies polydipsia, polyphagia or polyuria Hematologic/Lymphatic Hematologic/Lymphatic: Denies easy bleeding, easy bruising or lymphadenopathy Allergic/Immunologic Allergic/Immunologic ED: Denies mouth swelling, tongue swelling or urticaria EXAM Physical Exam Const Vital Signs: 04/09/24 10:20 Temperature 97.8 F Temperature Source Oral Pulse Rate 95 Respiratory Rate 18 Blood Pressure 130/92 H Blood Pressure Mean 104 Pulse Ox 100 Oxygen Delivery Method Room Air Positive well nourished and well developed General Appearance ED: well developed and NAD HEENT Reports TM's clear and moist mucous membranes normocephalic and atraumatic; Negative for trauma or tenderness Tympanic Membrane ED: Yes TM's clear Eyes PERRL and EOMs intact bilaterally General Eye ED: Negative for pale conjunctiva or scleral icterus Neck no lymphadenopathy, supple and no JVD General: Negative for tenderness Chest Wall inspection of chest normal and palpation of chest normal Chest: Negative for tenderness Resp normal respiratory effort and clear to auscultation bilaterally Effort and Inspection: Negative for respiratory distress or pain with movement Auscultation: Negative for rhonchi, wheezes or diminished lung sounds Cardio regular rate, regular rhythm, S1 normal heart sound, S2 normal heart sound and no murmurs Peripheral Pulses: pulses 2+ throughout GI normal to inspection, nondistended, normoactive bowel sounds, soft to palpation, non-distended and no masses GI Narrative: Tenderness palpation over suprapubic region as well as the left lower quadrant and right lower quadrant with guarding. There is no rebound, rigidity, peritoneal signs. No mass palpated Back/Spine no CVA tenderness and no thoracic nor lumbar tenderness Extremity normal to inspection General Extremety ED: Negative for edema General Extremity: Negative for edema Neuro oriented x3, CN's II-XII intact bilaterally, no sensory deficits noted and gait normal Sensorium / Orientation: awake, alert, oriented to person, oriented to place and oriented to time Motor Exam: strength 5/5 throughout and strength abnormal Psych mental status grossly normal Skin no rashes or lesions noted and no wounds Discharge Plan Triage Chief Complaint: Abd Pain ED Provider: Loki Escobar Dx/Rx/DC Orders Prescriptions: No Action oxycodone 5 mg tablet 5 mg PO Q4H PRN (Reason: pain) 3 Days Qty: 14 0RF Primary Care Provider: Care Physician,No Primary Referrals: Care Physician,No Primary [Primary Care Provider] - Print Language: Bulgarian
[2024-04-09] MEDS: 0.9% Normal Saline (1000mL) 1,000 ML 999 ML IV (11:03)
[2024-04-09 11:08] LABS: Absolute Lymphocyte Count 2.32 X10^3/uL (0.83-4.51); Absolute Neutrophil Count 5.5 X10^3/uL (2.0-7.7); Basophil# 0.03 X10^3/uL; Basophil% 0.3 % (0-1); Eosinophil# 0.19 X10^3/uL; Eosinophils% 2.2 % (0-5); Hematocrit 37.7 % (37-47); Hemoglobin 12.2 g/dL (12.0-15.0); Lymphocyte # 2.32 X10^3/ul (0.83-4.51); Mean Corp Hgb Conc 32.4 g/dL (32-36); Mean Corpuscular Hgb 29.9 pg (27.0-32.0); Mean Corpuscular Volume 92.4 fL (81-99); Mean Platelet Vol. 9.1 fl (6.2-12.0); Monocyte# 0.56 X10^3/uL; Monocyte% 6.5 % (0-10); NRBC Flagged by Analyzer 0 % (0-5); Neutrophil # 5.45 X10^3/uL (2.7-7.7); Neutrophil % 63.5 % (47-70); Platelet Count 324 K/mm3 (150-450); RBC Distribution Width CV 13.2 % (11.6-14.6); RBC Distribution Width SD 44.9 fl (35.1-43.9); Red Blood Count 4.08 M/mm3 (4.2-5.4); White Blood Count 8.6 K/mm3 (4.4-11.0)
[2024-04-09 11:34] LABS: Anion Gap 4 (5-15); BUN 7 mg/dL (7-18); BUN/Creat Ratio 9.2 RATIO (10-20); Chloride 110 mmol/L (98-107); Creatinine, Serum 0.76 mg/dL (0.55-1.02); EST Glomerular Filtration Rate 86 mL/min (>60); Est Glom Filt Rate - Afr Amer 104 mL/min (>60); Estimated Creatinine Clearance 90.11 ml/min; Glucose 95 mg/dL (74-106); Potassium 3.9 mmol/L (3.5-5.1); Sodium Level 138 mmol/L (136-145)
[2024-04-09 11:40] LABS: Lactic Acid 1.4 mmol/L (0.4-1.9)
[2024-04-09 11:58] LABS: Bacteria 0 SEEN /hpf (None Seen); Mucous, Urine 0 SEEN /hpf (<or=2+); White Blood Cells 0 SEEN /hpf (0-5)
[2024-04-09 12:09] VITALS: BP 107/81; PULSE 73; RESP 16; TEMP 37.1; O2SAT 98
[2024-04-09 12:09] LABS: Color, Urine Yellow (Yellow); Glucose, Dipstick Normal (Normal); Ketone-Dipstick Negative (Negative); Leukocyte Esterase-Dipstick Negative /ul (Negative); Nitrite-Dipstick Negative (Negative); Occult Blood-Urine 50 /ul (Negative); Protein-Dipstick Negative (Negative); Urine Bilirubin Dipstick Negative (Negative); Urine Clarity Sl. Cloudy (Clear); Urine Urobilinogen Normal (Normal)
[2024-04-09 12:16] LABS: Red Blood Cells-Urine 0-5 SEEN /hpf (0-5); Squamous Epithelial Cells - UA 0-5 SEEN /hpf (5-10)
--- NOTE | 2024-04-09 12:42 | CT_ITS ---
EXAM: CT ABDOMEN AND PELVIS WITHOUT INTRAVENOUS CONTRAST CLINICAL INDICATION: rule out patent fistula TECHNIQUE: Helically acquired images were obtained of the abdomen and pelvis without intravenous contrast. This CT exam was performed using one or more of the following dose reduction techniques: automated exposure control, adjustment of the mA and/or kV according to patient size, and/or use of iterative reconstruction technique. CONTRAST: Oral Gastrografin COMPARISON: CT Abdomen Pelvis dated 04/09/2024 FINDINGS: LOWER THORAX: Normal. Lung bases are clear. No cardiomegaly. No pericardial effusion. ABDOMEN: LIVER: Normal. Homogeneous. GALLBLADDER AND BILE DUCTS: Normal. No calcified gallstones. No gallbladder distention or wall edema. No intra- or extrahepatic biliary ductal dilation. PANCREAS: Normal. No focal cystic mass. SPLEEN: Normal. Normal size without focal cystic or solid mass. ADRENALS: Normal. No nodules. KIDNEYS AND URETERS: 2.7 cm right renal cyst again seen. No follow-up indicated. STOMACH AND BOWEL: Diffuse wall thickening of the sigmoid colon associated with adjacent fat stranding again seen consistent with acute sigmoid diverticulitis. No evidence of abscess or perforation. Distal small bowel has a normal appearance. No evidence of bowel fistula. PELVIS: APPENDIX: Appendix is visualized and normal in appearance. BLADDER: Normal. REPRODUCTIVE: Unremarkable as visualized. No mass. ABDOMEN and PELVIS: INTRAPERITONEAL SPACE: Normal. No ascites or other fluid collection. No free air. BONES/JOINTS: No suspicious lytic or blastic abnormality. SOFT TISSUES: Normal. No discrete abdominal or pelvic wall hernia. VASCULATURE: Normal. Abdominal aorta is non-dilated. LYMPH NODES: Normal. No enlarged lymph nodes. CT/Abdomen/Pel W ORAL Cont Only IMPRESSION: 1. Acute sigmoid diverticulitis without evidence of abscess or perforation. 2. Normal terminal ileum, cecum and appendix. Electronically Signed: Peter Arriaga MD at 16:34 EST ,
--- NOTE | 2024-04-09 13:32 | ED.RN ---
having multiple episodes of diarrhea since drinking contrast. notified and reported that pt took laxative at home.
[2024-04-09 16:59] VITALS: BP 119/88; PULSE 77; RESP 18; TEMP 36.9; O2SAT 96
== END 2024-04-09 17:35 | disposition home or self-care (01) ==
PROVIDERS: Emergency Provider Emergency Medicine; Visit Provider Emergency Medicine
DX: K57.32 Diverticulitis of large intestine without perforation or abscess without bleeding (principal); F17.210 Nicotine dependence, cigarettes, uncomplicated
CPT/HCPCS: J7030; 74176; 74177; 80048; 81001; 83605; 85025; 99283; Q9967; A4216

== ENCOUNTER 2025-01-13 12:04 | Emergency (ER) | payer OTHER, MEDICAID, SELFPAY ==
[2025-01-13 12:04] VITALS: BP 133/78; PULSE 90; RESP 14; TEMP 36.1; O2SAT 98; BMI 35.9
--- NOTE | 2025-01-13 13:51 | ED.VIS.GI ---
HPI HPI - GI History of Present Illness Chief Complaint: Abd Pain Narrative Narrative: 49-year-old female presents to the emergency department with chronic diarrhea that she has had for 2 years, as well as abdominal pain that she has had for about the same length of time. She relates history that she was seen by gastroenterology, Dr. Simons, [place] She had colonoscopy and endoscopy and was told that she does not have any Crohn disease or ulcerative colitis or inflammatory bowel disease. This was approximately 4 months ago. She continues to have daily diarrhea that is bile covered. No fevers or chills, no exacerbating or alleviating factors. She states that she was told to avoid dairy. Yesterday, she had an episode of diarrhea and had accidentally soiled her clothing. She presents with the same abdominal pain and diarrhea that she has had for 2 years intermittently. She also had history of diverticulitis, but states it does not feel like that. PFSH PFSH Medical History Wears glasses Wears dentures Depression Anxiety Alcohol use Arthritis Anemia Easy bruising Restless legs Back pain Migraine headache Syncope History of diverticulitis Gastric reflux Smoker Shortness of breath on exertion Chronic cough History of pain when walking History of echocardiogram History of stress test History of atrial fibrillation Home Medications ?Medication ?Instructions ?Recorded ?Last Taken ?Type amoxicillin 875 mg-potassium 1 tab PO Q12H 7 days #14 tabs 04/09/24 Unknown Rx clavulanate 125 mg tablet Allergy/AdvReac Type Severity Reaction Status Date / Time Environmental Allergies: Allergy Rash Verified 01/13/25 12:05 Uncoded nitroglycerin Allergy Hives Verified 01/13/25 12:05 Family History Other CVA (cerebral vascular accident) Cancer Surgical History History of carpal tunnel surgery of left wrist Hx of release of tendon Hx of prior ablation treatment H/O foot surgery Social History household members: none Smoking Status: Current every day smoker tobacco type: cigarettes alcohol intake: current alcohol intake frequency: 3 or more drinks per day Alcohol type: beer ROS ROS ED ROS Narrative Review of systems positive for diarrhea and abdominal pain for 2 years. No fevers or chills, no nausea or vomiting, no exacerbating or alleviating factors. States she has daily diarrhea that is bile colored. No exacerbating or alleviating factors. EXAM Physical Exam Narrative Exam Narrative: Afebrile. Vital signs noted. Nontoxic-appearing. Cardiovascular examination reveals a regular rate and rhythm. Lungs are clear to auscultation bilaterally. The abdomen is soft and nontender with normoactive bowel sounds. No guarding or rebound. No Nuñez's sign, no pain over McBurney's point. Neurological examination nonfocal, nonlateralizing. Became tearful on examination/history taking. Const Vital Signs: 01/13/25 12:04 Temperature 97 F L Temperature Source Temporal Pulse Rate 90 Respiratory Rate 14 Blood Pressure 133/78 H Blood Pressure Mean 96 Pulse Ox 98 Oxygen Delivery Method Room Air MDM MDM MDM Narrative Medical decision making narrative: I reviewed the patient's prior ED visit from 2023 when she had diverticulitis on CT scan. However, she states that this pain is not similar. This is more of a chronic pain. I had a lengthy discussion with the patient regarding workup. I did offer to perform CT scan again as well as basic laboratory work including CBC, and CMP to look for dehydration as she states she is having daily diarrhea. She states that she is frustrated and she declined laboratory work or any imaging because she has had it previously, and followed up with gastroenterology who could not tell her why she was having diarrhea daily for 2 years. Her medical screening examination is negative for acute process. The differential diagnosis did include cholecystitis versus diverticulitis versus gastroenteritis versus colitis versus C. difficile. However, history and physical does not support any of these as she has a nonsurgical abdomen. Additionally, I offered her referral to gastroenterology here with Dr. López. She accepted this, and I also offered to discuss it with him as he is on-call for no doc but she declined and wanted discharge. Once again she is declining any imaging or laboratory work at this point in time. With a negative screening examination I feel she can be discharged to follow-up as an outpatient for her chronic abdominal pain and diarrhea. I have discussed with her the limitations of emergency department workup, and she has already followed up with the specialist. It was through shared decision making that she would just take the referral to gastroenterology/contact information and was agreeable to discharge. Return instructions were reviewed. Disposition is discharged home in stable condition. History & Record Review Discussion w/independent historian: Patient Additional record(s) reviewed:: Prior ED visit Discharge Plan Triage Chief Complaint: Abd Pain ED Provider: Bryant Rubio Dx/Rx/DC Orders Clinical Impression: Abdominal pain, Diarrhea, Encounter for medical screening examination Instructions: ED Abdominal Pain Unkn Cause Fem, ED Diarrhea, Unknown Cause, ED Screening Exam Medical Nonurgent, ED Symptoms Uncertain Cause Prescriptions: No Action amoxicillin-pot clavulanate 875-125 mg tablet 1 tab PO Q12H 7 Days Qty: 14 0RF Primary Care Provider: Himanshu Gomez Referrals: FriendLincoln, DO [Med Staff - Active Staff] - As soon as possible Care Physician,No Primary [Non-Staff] - Activity Restrictions/Additional Instructions: Follow-up with gastroenterology as soon as possible. You should also follow-up with your primary care provider. Return with fever, new or worsening symptoms. Print Language: Guatemalan Disposition Disposition: Home, Self Care Discharge Date/Time: 01/13/25 13:51
== END 2025-01-13 13:51 | disposition home or self-care (01) ==
LOC: ED 13:33
PROVIDERS: Emergency Provider Emergency Medicine; PCP Physician Assistant; Visit Provider Emergency Medicine
DX: R10.9 Unspecified abdominal pain (principal); R19.7 Diarrhea, unspecified; F17.210 Nicotine dependence, cigarettes, uncomplicated
CPT/HCPCS: 99282